=== PATIENT | female | born 2000 | race Caucasian/White ===

== ENCOUNTER 2021-09-06 16:12 | Emergency (ER) | payer SELFPAY ==
[~2021-09-06] VITALS: Ht 165.1 cm; Wt 72.7 kg
[2021-09-06] MEDS ORDERED: IV NORMAL SALINE 1000ML BAG 1,000 ML IV ONE (16:45)
--- NOTE | 2021-09-06 17:05 | RAD ---
Study: XR CHEST 1V Indication: Nausea. Chills. Comparison: None. Findings: The cardiomediastinal silhouette and mekhi are within normal limits. No localized airspace opacity, pl eural effusion or pneumothorax. Impression: No acute radiographic abnormality of the chest. Electronically signed by: KEMAR CHANG MD (09/06/2021 5:02 PM) [facility]
--- NOTE | 2021-09-06 17:06 | PHYS DOC ---
General Adult EDM: Chief Complaint: OTHER COMPLAINTS HPI: HPI: Patient is a 20 year old female who presents with today began feeling shaky, nauseated and unable to eat food. Upon arrival she was shaking in the chair and rolling her eyes back into her head. She denies chest pain, shortness of air, numbness or tingling, vomiting, diarrhea, numbness or tingling, vision change, dizziness, headache. She has no pain at this time. She is very anxious. Patient has history of autism, anxiety, depression, ADHD. Review of Systems: Review of Systems: Constitutional: Denies fever or +chills. [] Eyes: Denies change in visual acuity. [] HENT: Denies nasal congestion or sore throat. [] Respiratory: Denies cough or shortness of breath. [] Cardiovascular: Denies chest pain or edema. [] GI: Denies abdominal pain, +nausea, denies vomiting, bloody stools or diarrhea. [] : Denies dysuria. [] Musculoskeletal: Denies back pain or joint pain. [] Integument: Denies rash. [] Neurologic: Denies headache, focal weakness or sensory changes. +seizure like activity [] Endocrine: Denies polyuria or polydipsia. [] Lymphatic: Denies swollen glands. [] Psychiatric: Denies depression or anxiety. [] Heart Score: C/O Chest Pain: No Current Medications: Current Medications Medications (Trade) Dose Ordered Sig/Thad Start Time Stop Time Status Last Admin Dose Admin Sodium Chloride 1,000 ml @ 1,000 mls/hr 1X ONCE 09/06/21 16:45 09/06/21 17:44 Allergies: Allergies: Allergies Coded Allergies Type Severity Reaction Last Updated Verified [place] And Derivatives Allergy Unknown 09/06/21 Yes Fish Containing Products Allergy Unknown 09/06/21 Yes Physical Exam: PE: Constitutional: Well developed, well nourished, no acute distress, non-toxic appearance. [] HENT: Normocephalic, atraumatic, bilateral external ears normal, oropharynx moist, no oral exudates, nose normal. [] Eyes: PERRLA, EOMI, conjunctiva normal, no discharge. [] Neck: Normal range of motion, no tenderness, supple, no stridor. [] Cardiovascular:Heart rate regular rhythm, no murmur [] Lungs & Thorax: Bilateral breath sounds clear to auscultation [] Abdomen: Bowel sounds normal, soft, no tenderness, no masses, no pulsatile masses. [] Skin: Warm, dry, no erythema, no rash. [] Back: No tenderness, no CVA tenderness. [] Extremities: No tenderness, no cyanosis, no clubbing, ROM intact, no edema. [] Neurologic: Alert and oriented X 3, normal motor function, normal sensory function, no focal deficits noted. Shakey[] Psychologic: Affect normal, judgement normal, mood normal. Anxious[] EKG: EKG: [] Radiology/Procedures: Radiology/Procedures: [] Impression: [address] [id number] IMAGING REPORT Signed PATIENT: BOLIVAR DOTSON ACCOUNT: [id number] : 2000 LOCATION: ER AGE: 20 SEX: F EXAM STATUS: PRE ER ORD. PHYSICIAN: RODNEY BABCOCK APRN REASON: nausea, chills PROCEDURE: PORTABLE CHEST 1V Study: XR CHEST 1V Indication: Nausea. Chills. Comparison: None. Findings: The cardiomediastinal silhouette and mekhi are within normal limits. No localized airspace opacity, pleural effusion or pneumothorax. Impression: No acute radiographic abnormality of the chest. Electronically signed by: KEMAR CHANG MD (09/06/2021 5:02 PM) [facility] DICTATED and SIGNED BY: KEMAR CHANG MD DATE: 09/06/211701 [address] [id number] IMAGING REPORT Signed PATIENT: BOLIVAR DOTSON N ACCOUNT: [id number] : 2000 LOCATION: ER AGE: 20 SEX: F EXAM STATUS: REG ER ORD. PHYSICIAN: RODNEY BABCOCK APRN REASON: seizure like activity PROCEDURE: CT HEAD WO CONTRAST STUDY: CT head without contrast INDICATION: Seizure-like activity. COMPARISON: June 05, 2018 TECHNIQUE: Axial CT imaging through the head without the use of intravenous contrast. Sagittal and coronal reformats were obtained. One or more of the following individualized dose reduction techniques were utilized for this examination: 1. Automated exposure control 2. Adjustment of the mA and/or kV according to patient size 3. Use of iterative reconstruction technique. FINDINGS: No acute intracranial hemorrhage. Bonner-white matter differentiation is maintained. No mass effect, midline shift or hydrocephalus. Unremarkable scalp, partially imaged orbits and calvarium. Normally aerated mastoid air cells, middle ears and partially imaged paranasal sinuses. Prominence of the adenoids likely physiologic given patient age. IMPRESSION: No acute intracranial abnormality by CT. Electronically signed by: KEMAR CHANG MD (09/06/2021 6:33 PM) [facility] DICTATED and SIGNED BY: KEMAR CHANG MD DATE: 09/06/211831 Course & Med Decision Making: Course & Med Decision Making Pertinent Labs and Imaging studies reviewed. (See chart for details) See HPI. Ambulatory with a steady gait. She is not postictal. She is shaking her legs rapidly in the bed. She is very anxious. Speaks in full clear sentences. Alert and oriented x4. Patient's is at bedside. Skin pink warm and dry. No extremity edema. Abdomen is soft and nontender. Lungs are clear to auscultation all lobes. She is afebrile. Vital signs within normal limits. Patient refused nausea medication. She had a liter of normal saline. Patient states she is feeling much better. She is no longer shaking and is sitting up and smiling. Full physical and work-up exam is negative. Rapid Covid and flu is negative [] Dragon Disclaimer: Iban Disclaimer: This electronic medical record was generated, in whole or in part, using a voice recognition dictation system. Departure Departure Impression: Primary Impression: Anxiety Additional Impression: Nausea Disposition: 01 HOME / SELF CARE / HOMELESS Condition: STABLE Patient Instructions: Anxiety and Panic Attacks, Nausea, Adult Additional Instructions: Drink plenty of fluids to stay hydrated. Continue taking all your medications as prescribed. Your influenza and Covid are negative. Follow-up with your primary care provider soon as possible. Scripts Ondansetron (ONDANSETRON ODT) 4 Mg Tab.rapdis 1 TAB PO PRN Q6-8HRS, #16 TAB Prov: RODNEY BABCOCK APRN 09/06/21 RODNEY BABCOCK APRN Sep 06, 2021 17:06
[2021-09-06 17:50] LABS: BASO % 1 % (0-3); EOS % 1 % (0-3); HEMATOCRIT 37.2 % (36.0-47.0); HEMOGLOBIN 12.2 g/dL (12.0-15.5); LYMPH # 1.4 x10^3/uL (1.0-4.8); LYMPH % 26 % (24-48); MEAN CORPUSCULAR HEMOGLOBIN 28 pg (25-35); MEAN CORPUSCULAR HGB CONC 33 g/dL (31-37); MEAN CORPUSCULAR VOLUME 86 fL (79-100); MONO # 0.5 x10^3/uL (0.0-1.1); MONO % 10 % (0-9); NEUT # 3.4 x10^3/uL (1.8-7.7); NEUT % 63 % (31-73); PLATELET COUNT 281 x10^3/uL (140-400); RED BLOOD COUNT 4.33 x10^6/uL (3.50-5.40); RED CELL DISTRIBUTION WIDTH 14.1 % (11.5-14.5); WHITE BLOOD COUNT 5.4 x10^3/uL (4.0-11.0)
[2021-09-06 17:51] LABS: BACTERIA,URINE MODERATE /HPF (0-FEW)
[2021-09-06 17:57] LABS: INFLUENZA A PATIENT NEGATIVE (NEGATIVE); INFLUENZA B PATIENT NEGATIVE (NEGATIVE)
[2021-09-06 18:04] LABS: BARBITURATES NEG (NEG); BENZODIAZEPINES NEG (NEG); CANNABINOIDS NEG (NEG); COCAINE NEG (NEG); METHADONE NEG (NEG); OPIATES NEG (NEG); PHENCYCLIDINE NEG (NEG)
[2021-09-06 18:05] LABS: AMPHETAMINE/METHAMPHETAMINE NEG (NEG)
[2021-09-06 18:05] LABS: CALCIUM 8.9 mg/dL (8.5-10.1); CREATININE 0.7 mg/dL (0.6-1.0); GFR 104.6
[2021-09-06 18:11] LABS: ALBUMIN/GLOBULIN RATIO 1.1 (1.0-1.7); TOTAL BILIRUBIN 0.5 mg/dL (0.2-1.0); TOTAL PROTEIN 7.6 g/dL (6.4-8.2)
[2021-09-06] MEDS ORDERED: ONDANSETRON PF 4 MG/2 ML VIAL. IVP ONE (18:30)
--- NOTE | 2021-09-06 18:36 | RAD ---
STUDY: CT head without contrast INDICATION: Seizure-like activity. COMPARISON: June 05, 2018 TECHNIQUE: Axial CT imaging through the head without the use of intravenous contrast. Sagittal and co lisseth reformats were obtained. One or more of the following individualized dose reduction techniques were utilized for this examinat ion: 1. Automated exposure control 2. Adjustment of the mA and/or kV according to patient size 3. Use of iterative reconstruction technique. FINDINGS: No acute intracranial hemorrhage. Bonner-white matter differentiation is maintained. No mass effect, mi dline shift or hydrocephalus. Unremarkable scalp, partially imaged orbits and calvarium. Normally aerated mastoid air cells, middle ears and partially imaged paranasal sinuses. Prominence of the adenoids likely physiologic given pat ient age. IMPRESSION: No acute intracranial abnormality by CT. Electronically signed by: KEMAR CHANG MD (09/06/2021 6:33 PM) [facility]
[2021-09-06] MEDS ORDERED: ONDA4TAB12 PO (18:51)
[2021-09-06 20:15] VITALS: BP 121/63
--- NOTE | 2021-09-07 12:30 | EKG ---
[facility] [address] [place] [id number] Test Date: 2021-09-06 Test Time: 18:25:21 Pat Name: BOLIVAR DOTSON Department: Room: Gender: F Respiratory Manager: : 2000 Requested By: RODNEY BABCOCK Order Number: [id number] Reading MD: Measurements Intervals [place] Rate: 81 P: 43 MN: 150 QRS: 22 QRSD: 86 T: 11 QT: 360 QTc: 424 Interpretive Statements SINUS RHYTHM NORMAL ECG RI6.02 No previous ECG available for comparison
== END 2021-09-06 20:25 | disposition home or self-care (01) ==
LOC: ER 16:12
DX: R11.0 Nausea (principal); F41.9 Anxiety disorder, unspecified; Z20.822 Contact with and (suspected) exposure to COVID-19
CPT/HCPCS: 36415; 70450; 71045; 80053; 80307; 81001; 81025; 82550; 83735; 84484; 84702; 85025; 87086; 87428; 93005; 96360; 99285; J7030